=== PATIENT | male | born 1950 | race African-American/Black ===

== ENCOUNTER 2018-03-03 12:45 | Emergency (ER) | payer BC, MEDICARE ==
[~2018-03-03] VITALS: Ht 172.7 cm; Wt 99.8 kg
[2018-03-03] MEDS ORDERED: MECLIZINE HCL 12.5 MG TABLET. PO ONE (13:00)
[2018-03-03 13:19] VITALS: BP 164/82
[2018-03-03 13:19] LABS: BASO # 0.1 x10^3/uL (0.0-0.2); BASO % 1 % (0-3); EOS # 0.1 x10^3/uL (0.0-0.7); EOS % 2 % (0-3); HEMATOCRIT 40.3 % (39.0-53.0); HEMOGLOBIN 13.5 g/dL (13.0-17.5); LYMPH # 1.1 x10^3/uL (1.0-4.8); LYMPH % 13 % (24-48); MEAN CORPUSCULAR HEMOGLOBIN 28 pg (25-35); MEAN CORPUSCULAR HGB CONC 34 g/dL (31-37); MEAN CORPUSCULAR VOLUME 84 fL (79-100); MONO # 0.6 x10^3/uL (0.0-1.1); MONO % 7 % (0-9); NEUT # 6.4 x10^3uL (1.8-7.7); NEUT % 78 % (31-73); PLATELET COUNT 309 x10^3/uL (140-400); RED BLOOD COUNT 4.82 x10^6/uL (4.30-5.70); RED CELL DISTRIBUTION WIDTH 14.7 % (11.5-14.5); WHITE BLOOD COUNT 8.3 x10^3/uL (4.0-11.0)
--- NOTE | 2018-03-03 13:19 | RAD ---
EXAM: Chest, single view. HISTORY: Shortness of breath. Cough. COMPARISON: 05/15/2011. FINDINGS: A frontal view of the chest is obtained. There is no infiltrate, pleural effusion or pneumothorax. The heart is normal in size. There is stable widening of the right paratracheal stripe. IMPRESSION: No acute pulmonary finding. Electronically signed by: Dianelys Escamilla MD (03/03/2018 1:16 PM) [facility]
[2018-03-03 13:28] LABS: CALCIUM 8.7 mg/dL (8.5-10.1); CREATININE 2.4 mg/dL (0.7-1.3); GFR 32.6; POTASSIUM 3.2 mmol/L (3.5-5.1); PROTHROMBIN TIME PATIENT 12.5 SEC (11.7-14.0)
[2018-03-03 13:35] LABS: ALBUMIN 2.8 g/dL (3.4-5.0); ALBUMIN/GLOBULIN RATIO 0.6 (1.0-1.7); TOTAL BILIRUBIN 0.6 mg/dL (0.2-1.0); TOTAL PROTEIN 7.7 g/dL (6.4-8.2)
--- NOTE | 2018-03-03 13:43 | PHYS DOC ---
Past Medical History Past Medical History: Diabetes-Type II, High Cholesterol, Hypertension, Renal Disease Past Surgical History: No Surgical History Alcohol Use: None Drug Use: None Adult General Chief Complaint Chief Complaint: WEAKNESS/GENERALIZED HPI HPI Patient is a 67 year old male was brought in by ambulance with lightheadedness on and off for the last 2 weeks or so feels like he's going to pass out at times however he does not actually do so it is worse at night was lying in bed. 10 today he was going to yazdanism he felt like he was drunk he says the room is not spinning however. No double vision no chest pain or shortness of breath he just recently started a new diabetes medication triseba a copule weeks back. Review of Systems Review of Systems Constitutional: Denies fever or chills [] Eyes: Denies change in visual acuity, redness, or eye pain [] HENT: Denies nasal congestion or sore throat [] Respiratory: Denies cough or shortness of breath [] Cardiovascular: No additional information not addressed in HPI [] GI: Denies abdominal pain, nausea, vomiting, bloody stools or diarrhea [] Neurologic: Denies headache, focal weakness or sensory changes [] Endocrine: Denies polyuria or polydipsia [] All other systems were reviewed and found to be within normal limits, except as documented in this note. Current Medications Current Medications Current Medications Medications (Trade) Dose Ordered Sig/Wenceslao Start Time Stop Time Status Last Admin Dose Admin Meclizine HCl (Antivert) 25 mg 1X ONCE 03/03/18 13:00 03/03/18 13:01 DC 03/03/18 13:30 25 MG Sodium Chloride 1,000 ml @ 1,000 mls/hr 1X ONCE 03/03/18 13:45 03/03/18 14:44 DC 03/03/18 13:56 1,000 MLS/HR Allergies Allergies Allergies Coded Allergies Type Severity Reaction Last Updated Verified No Known Drug Allergies 07/18/13 No Physical Exam Physical Exam Constitutional: Well developed, well nourished, no acute distress, non-toxic appearance. [] HENT: Normocephalic, atraumatic, bilateral external ears normal, oropharynx moist, no oral exudates, nose normal. [] Eyes: PERRLA, EOMI, conjunctiva normal, no discharge. [] Neck: Normal range of motion, no tenderness, supple, no stridor. [] Cardiovascular:Heart rate regular rhythm, no murmur [] Lungs & Thorax: Bilateral breath sounds clear to auscultation [] Abdomen: Bowel sounds normal, soft, no tenderness, no masses, no pulsatile masses. [] Skin: Warm, dry, no erythema, no rash. [] Back: No tenderness, no CVA tenderness. [] Extremities: No tenderness, no cyanosis, no clubbing, ROM intact, no edema. [] Neurologic: Alert and oriented X 3, normal motor function, normal sensory function, no focal deficits noted. [] Psychologic: Affect normal, judgement normal, mood normal. [] Current Patient Data Vital Signs Vital Signs Date Time Temp Pulse Resp B/P (MAP) Pulse Ox O2 Delivery O2 Flow Rate FiO2 03/03/18 13:19 98.2 77 18 164/82 (109) 92 Room Air 98.2 Lab Values Laboratory Tests Test 03/03/18 13:00 03/03/18 13:10 White Blood Count 8.3 x10^3/uL (4.0-11.0) Red Blood Count 4.82 x10^6/uL (4.30-5.70) Hemoglobin 13.5 g/dL (13.0-17.5) Hematocrit 40.3 % (39.0-53.0) Mean Corpuscular Volume 84 fL (79-100) Mean Corpuscular Hemoglobin 28 pg (25-35) Mean Corpuscular Hemoglobin Concent 34 g/dL (31-37) Red Cell Distribution Width 14.7 % (11.5-14.5) H Platelet Count 309 x10^3/uL (140-400) Neutrophils (%) (Auto) 78 % (31-73) H Lymphocytes (%) (Auto) 13 % (24-48) L Monocytes (%) (Auto) 7 % (0-9) Eosinophils (%) (Auto) 2 % (0-3) Basophils (%) (Auto) 1 % (0-3) Neutrophils # (Auto) 6.4 x10^3uL (1.8-7.7) Lymphocytes # (Auto) 1.1 x10^3/uL (1.0-4.8) Monocytes # (Auto) 0.6 x10^3/uL (0.0-1.1) Eosinophils # (Auto) 0.1 x10^3/uL (0.0-0.7) Basophils # (Auto) 0.1 x10^3/uL (0.0-0.2) Prothrombin Time 12.5 SEC (11.7-14.0) Prothrombin Time INR 1.0 (0.8-1.1) Sodium Level 135 mmol/L (136-145) L Potassium Level 3.2 mmol/L (3.5-5.1) L Chloride Level 99 mmol/L (98-107) Carbon Dioxide Level 33 mmol/L (21-32) H Anion Gap 3 (6-14) L Blood Urea Nitrogen 16 mg/dL (8-26) Creatinine 2.4 mg/dL (0.7-1.3) H Estimated GFR (Cockcroft-Gault) 32.6 BUN/Creatinine Ratio 7 (6-20) Glucose Level 377 mg/dL (70-99) H Calcium Level 8.7 mg/dL (8.5-10.1) Total Bilirubin 0.6 mg/dL (0.2-1.0) Aspartate Amino Transferase (AST) 17 U/L (15-37) Alanine Aminotransferase (ALT) 21 U/L (16-63) Alkaline Phosphatase 86 U/L (46-116) Troponin I Quantitative < 0.017 ng/mL (0.000-0.055) Total Protein 7.7 g/dL (6.4-8.2) Albumin 2.8 g/dL (3.4-5.0) L Albumin/Globulin Ratio 0.6 (1.0-1.7) L Urine Collection Type Unknown Urine Color Yellow Urine Clarity Clear Urine pH 7.5 Urine Specific [place] 1.015 Urine Protein >=300 mg/dL (NEG-TRACE) Urine Glucose (UA) >=1000 mg/dL (NEG) Urine Ketones (Stick) Negative mg/dL (NEG) Urine Blood Negative (NEG) Urine Nitrite Negative (NEG) Urine Bilirubin Negative (NEG) Urine Urobilinogen Dipstick 0.2 mg/dL (0.2 mg/dL) Urine Leukocyte Esterase Negative (NEG) Urine RBC Occ /HPF (0-2) Urine WBC 0 /HPF (0-4) Urine Squamous Epithelial Cells Occ /LPF Urine Bacteria 0 /HPF (0-FEW) Urine Hyaline Casts Few /HPF Laboratory Tests 03/03/18 13:00 Laboratory Tests 03/03/18 13:00 EKG EKG [] Interpretation Time: EKG does show normal sinus rhythm with a rate of 78 there is poor R-wave progression anteriorly but there is no acute ST elevation WI noted interpreted by me the time of encounter Radiology/Procedures Radiology/Procedures [] Impressions: DINGS: A frontal view of the chest is obtained. There is no infiltrate, pleural effusion or pneumothorax. The heart is normal in size. There is stable widening of the right paratracheal stripe. IMPRESSION: No acute pulmonary finding. Electronically signed by: Dianelys Escamilla MD (03/03/2018 1:16 PM) [facility] DICTATED and SIGNED BY: DIANELYS ESCAMILLA MD DATE: 03/03/184 Course & Med Decision Making Course & Med Decision Making Pertinent Labs and Imaging studies reviewed. (See chart for details) 67-year-old male brought in by ambulance with lightheadedness. Overall is fairly nonspecific it does not clearly sound like cardiac in nature He is having elevated blood sugar also his creatinine is up to 2.4 from a baseline of 1.5. iv fluids were given. pt felt better after treatment. Meclizine also given. pt has f/u with nephrology this week. Dragon Disclaimer Dragon Disclaimer This electronic medical record was generated, in whole or in part, using a voice recognition dictation system. Departure Departure Impression: Primary Impression: Lightheadedness Disposition: 01 HOME, SELF-CARE Condition: STABLE Referrals: LACEY ENCARNACION MD (PCP) SONIDO TRAORE MD Mar 03, 2018 13:43
[2018-03-03] MEDS ORDERED: IV NORMAL SALINE 1000ML BAG 1,000 ML IV ONE (13:45)
[2018-03-03 15:31] LABS: BILIRUBIN,URINE NEGATIVE (NEG); CLARITY,URINE CLEAR; COLOR,URINE YELLOW; NITRITE,URINE NEGATIVE (NEG); PH,URINE 7.5; PROTEIN,URINE >=300 mg/dL (NEG-TRACE); UROBILINOGEN,URINE 0.2 mg/dL (0.2 mg/dL)
[2018-03-03 15:49] LABS: BACTERIA,URINE 0 /HPF (0-FEW); HYALINE CASTS, URINE FEW /HPF; RBC,URINE OCC /HPF (0-2); SQUAMOUS EPITHELIAL CELL,UR OCC /LPF; WBC,URINE 0 /HPF (0-4)
--- NOTE | 2018-03-03 18:50 | EKG ---
[facility] [address] [place] [address] Test Date: 2018-03-03 Test Time: 13:01:50 Pat Name: MAGALY OLIVA Department: Room: Gender: M Single Stroke Preformer: : 1950 Requested By: SONIDO TRAORE Order Number: [id number] Reading MD: Fuad Santiago MD Measurements Intervals Herrick Rate: 78 P: 23 OK: 174 QRS: 1 QRSD: 90 T: 26 QT: 406 QTc: 467 Interpretive Statements SINUS RHYTHM NON-SPECIFIC ST/T CHANGES Electronically Signed On 03-04-2018 10:50:15 CDT by Fuad Santiago MD
== END 2018-03-03 16:17 | disposition home or self-care (01) ==
LOC: ER 12:45
DX: R42 Dizziness and giddiness (principal); E11.9 Type 2 diabetes mellitus without complications; E78.00 Pure hypercholesterolemia, unspecified; I10 Essential (primary) hypertension
CPT/HCPCS: 36415; 71045; 80053; 81001; 84484; 85025; 85610; 93005; 96360; 96361; 99285; J7030; J8597

== ENCOUNTER → 2018-03-08 | Outpatient (CLI) | payer MEDICARE ==
[2018-03-03 13:19] VITALS: BP 164/82
--- NOTE | 2018-03-08 13:55 | RAD ---
MRI Brain without contrast History: Diplopia for 5 days, unsteady gait and dizziness for 2 weeks Technique: Multiplanar, multisequential noncontrast MR imaging was performed of the brain. Contrast: None Comparison: None Findings: There is a small about 0.9 cm focus of increased diffusion signal which is relatively isointense on ADC map of the right occipital lobe, also tiny focus of restricted diffusion right temporal cortical surface about 0.3 cm and about 3 tiny foci of diffusion signal abnormality of the right parietal lobe near the cortical surface with the largest about 0.4 cm which are more hypointense on ADC map. Foci are associated with mild increased T2 and STIR signal. There is no intra-axial mass effect, midline shift, or extra-axial fluid collection. Ventricular size is within normal limits. There is multifocal moderate T2 and FLAIR hyperintense abnormality of the supratentorial white matter bilaterally, also some foci of the bilateral basal ganglia greater on the left and minimally of the amy. Focus of signal change of the posterior left basal ganglia is probably due to old lacunar infarct. There is preservation of the major arterial intracranial flow voids at the skull base other than probably hypoplastic right vertebral artery flow-void. There is a tiny old lacunar infarct of the left cerebellum. There is likely cyst of the right nasal cavity about 1.1 cm, negligible patchy ethmoid air cell mucosal thickening. There are small mucous retention cysts of the inferior maxillary sinuses bilaterally. Cerebellar tonsils are normal in location. There is preserved marrow signal of the clivus. Pituitary gland is small. Impression: 1. There are a few small foci of recent, likely subacute infarcts of the right occipital, temporal, parietal lobes. 2. Other multifocal T2 and FLAIR hyperintense signal abnormality of the supratentorial white matter and to lesser degree of the amy is probably due to to chronic microvascular ischemic disease. FOR INTERNAL CODING PURPOSES Critical result: Findings discussed with nurse Pichardo in the office of Yina Abel at 03/08/2018 1:52 PM, to inform doctor of findings. RESULT CODE: (C) Electronically signed by: Bonilla Montano MD (03/08/2018 1:52 PM) [facility] [place]
== END | disposition home or self-care (01) ==
LOC: MRI 12:54
PROVIDERS: ATTEND Nurse Practitioner Gerontology
DX: J34.1 Cyst and mucocele of nose and nasal sinus (principal); I10 Essential (primary) hypertension; E11.9 Type 2 diabetes mellitus without complications; E78.00 Pure hypercholesterolemia, unspecified; R90.82 White matter disease, unspecified; Z87.891 Personal history of nicotine dependence
CPT/HCPCS: 70551

== ENCOUNTER → 2018-03-13 | Outpatient (CLI) | payer MEDICARE ==
[2018-03-03 13:19] VITALS: BP 164/82
--- NOTE | 2018-03-13 17:08 | RAD ---
Carotid ultrasound, 03/13/2018: HISTORY: Dizziness Duplex evaluation of the carotid arteries and neck was performed including grayscale, color-flow and spectral Doppler analysis. There is moderate atherosclerotic plaquing in the common carotid arteries and at both carotid bifurcations. These plaques are partially calcified. At the right carotid bulb there appears to be approximately 50 percent diameter narrowing with a peak systolic velocity of 193 cm/s and an end-diastolic velocity of 33 cm/s. The peak systolic velocity in the right internal carotid artery is 133 cm/s with an end-diastolic velocity of 25 cm/s and an internal carotid to common carotid artery ratio 1.2. These Doppler findings suggest narrowing in the 0-50 percent diameter range. There is a moderate velocity acceleration in the proximal right external carotid artery up to 285 cm/s. On the left, the proximal internal carotid artery is quite tortuous. The peak systolic velocity in the internal carotid artery is 135 cm/s with an end-diastolic velocity of 19 cm/s and an internal carotid to common carotid artery ratio 1.1. These Doppler findings suggest narrowing in the 0-50 percent diameter range. There is a mild velocity acceleration in the proximal left external carotid artery up to 202 cm/s. Antegrade flow is present in both vertebral arteries in the neck. IMPRESSION: 1. Moderate atherosclerotic plaquing at both carotid bifurcations with narrowing of the carotid bulbs and the proximal internal carotid arteries in the 0-50 percent diameter range bilaterally. 2. Mild to moderate stenosis of the proximal right external carotid artery. Note: Stenosis calculations for CT, MRA and conventional angiography are based upon determination of the distal ICA diameter in accordance with the NASCET methodology. Stenosis calculations for Doppler studies are derived from validated velocity criteria which are known to correlate with NASCET methodology of determining stenosis. Electronically signed by: Benjamin Moscoso MD (03/13/2018 5:05 PM) [facility]
== END | disposition home or self-care (01) ==
LOC: US 15:01
PROVIDERS: ATTEND Nurse Practitioner Gerontology
DX: I65.23 Occlusion and stenosis of bilateral carotid arteries (principal); I10 Essential (primary) hypertension; E11.9 Type 2 diabetes mellitus without complications; E78.00 Pure hypercholesterolemia, unspecified; Z87.891 Personal history of nicotine dependence
CPT/HCPCS: 93880

== ENCOUNTER → 2018-06-07 | Outpatient (CLI) | payer MEDICARE ==
[2018-06-07 13:21] LABS: BASO # 0.1 x10^3/uL (0.0-0.2); BASO % 1 % (0-3); EOS # 0.3 x10^3/uL (0.0-0.7); EOS % 5 % (0-3); HEMATOCRIT 37.2 % (39.0-53.0); HEMOGLOBIN 12.3 g/dL (13.0-17.5); LYMPH % 29 % (24-48); MEAN CORPUSCULAR HEMOGLOBIN 28 pg (25-35); MEAN CORPUSCULAR HGB CONC 33 g/dL (31-37); MEAN CORPUSCULAR VOLUME 83 fL (79-100); MONO # 0.7 x10^3/uL (0.0-1.1); MONO % 10 % (0-9); NEUT # 3.8 x10^3uL (1.8-7.7); NEUT % 55 % (31-73); PLATELET COUNT 307 x10^3/uL (140-400); RED BLOOD COUNT 4.47 x10^6/uL (4.30-5.70); RED CELL DISTRIBUTION WIDTH 15.7 % (11.5-14.5); WHITE BLOOD COUNT 6.8 x10^3/uL (4.0-11.0)
[2018-06-07 13:37] LABS: ALBUMIN 2.5 g/dL (3.4-5.0); ALBUMIN/GLOBULIN RATIO 0.6 (1.0-1.7); CALCIUM 8.7 mg/dL (8.5-10.1); CREATININE 2.6 mg/dL (0.7-1.3); GFR 29.7; POTASSIUM 3.7 mmol/L (3.5-5.1); TOTAL BILIRUBIN 0.5 mg/dL (0.2-1.0)
== END | disposition home or self-care (01) ==
LOC: LAB 12:55
PROVIDERS: ATTEND Psychiatry & Neurology Neurology
DX: E11.40 Type 2 diabetes mellitus with diabetic neuropathy, unspecified (principal)
CPT/HCPCS: 36415; 80053; 82607; 84443; 85025

== ENCOUNTER → 2018-06-19 | Outpatient (CLI) | payer MEDICARE ==
--- NOTE | 2018-06-19 16:12 | CARD ---
MR#: [id number] Date of Study: 06/19/2018 Ordering Physician: ALEC GARCIA, Referring Physician: ALEC GARCIA, Tech: Sissy Christopher RDCS APPROVED REPORT EXAM: Two-dimensional and M-mode echocardiogram with Doppler and color Doppler. Other Information Quality : Good INDICATION CVA/TIA Echo Enhancing Agent Agent/Amount Used: Agitated Saline 16mL 2D DIMENSIONS RVDd2.6 (2.9-3.5cm)Left Atrium(2D)4.4 (1.6-4.0cm) IVSd1.6 (0.7-1.1cm)Aortic Root(2D)2.8 (2.0-3.7cm) LVDd4.7 (3.9-5.9cm)LVOT Diameter2.0 (1.8-2.4cm) PWd1.6 (0.7-1.1cm)LVDs3.5 (2.5-4.0cm) FS (%) 27.0 %SV51.0 ml LVEF(%)55.0 (>50%) Aortic Valve AoV Peak Bjorn.146.9cm/sAoV VTI28.1cm AO Peak GR.8.6mmHgLVOT Peak Bjorn.75.5cm/s AO Mean GR.5mmHgAVA (VMAX)1.57cm2 Mitral Valve MV E Gptczqrk49.9cm/sMV DECEL LIJY542ts MV A [place]694.4cm/sE/A Ratio0.8 Pulmonary Vein S1 Wluecvty77.2cm/sD2 Nvrmqpxv88.2cm/s LEFT VENTRICLE The left ventricle is normal size. There is mild concentric left ventricular hypertrophy. The left ve ntricular systolic function is normal and the ejection fraction is within normal range. The Ejection Fraction is 55-60%. There is normal LV segmental wall motion. Transmitral Doppler flow pattern is Gra de I-abnormal relaxation pattern. RIGHT VENTRICLE The right ventricle is normal size. The right ventricular systolic function is normal. ATRIA The left atrium is mildly dilated. The right atrium size is normal. Mildly positive bubbke study. Inj ection of bubbles documented a mild interatrial shunt. The interatrial shunt is also visualized by co ralf Doppler in the subcostal view. AORTIC VALVE The aortic valve is calcified but opens well. Doppler and Color Flow revealed no significant aortic r egurgitation. There is no significant aortic valvular stenosis. MITRAL VALVE The mitral valve is calcified but opens well. There is no evidence of mitral valve prolapse. There is no mitral valve stenosis. Doppler and Color-flow revealed trace to mild mitral regurgitation. TRICUSPID VALVE The tricuspid valve is normal in structure and function. Doppler and Color Flow revealed trace tricus pid valve regurgitation. There is no tricuspid valve stenosis. PULMONIC VALVE The pulmonic valve is not well visualized. Doppler and Color Flow revealed trace to mild pulmonic irma vular regurgitation. There is no pulmonic valvular stenosis. GREAT VESSELS The aortic root is normal in size. The ascending aorta is mildly dilated at 4.0 cm. The IVC is normal in size and collapses >50% with inspiration. PERICARDIAL EFFUSION There is no evidence of significant pericardial effusion. Critical Notification Critical Value: No <Conclusion> The left ventricle is normal size. The left ventricular systolic function is normal and the ejection fraction is within normal range. The Ejection Fraction is 55-60%. There is mild concentric left ventricular hypertrophy. Mildly positive bubbke study. Injection of bubbles documented a mild interatrial shunt. The interatrial shunt is also visualized by color Doppler in the subcostal view. There is no significant aortic valvular stenosis. Doppler and Color Flow revealed no significant aortic regurgitation. Doppler and Color-flow revealed trace to mild mitral regurgitation. Doppler and Color Flow revealed trace tricuspid valve regurgitation. Signed by : Ld Salmon MD Electronically Approved : 06/19/2018 16:10:25
--- NOTE | 2018-06-19 16:34 | RAD ---
Ultrasound venous Doppler INDICATION:B/L LEG EDEMA TECHNIQUE: Grayscale, color Doppler and spectral waveform ultrasound images of the bilateral lower extremities deep veins obtained. COMPARISON: None FINDINGS: The interrogated deep veins are compressible and demonstrate evidence of blood flow with normal respiratory variation and response to augmentation. IMPRESSION: No sonographic evidence of acute DVT of the bilateral lower extremity deep veins. Electronically signed by: Esteban Linton DO (06/19/2018 4:31 PM) [facility]
== END | disposition home or self-care (01) ==
LOC: CARD 14:12
PROVIDERS: ATTEND Psychiatry & Neurology Neurology
DX: I34.0 Nonrheumatic mitral (valve) insufficiency (principal); I51.7 Cardiomegaly; R60.0 Localized edema
CPT/HCPCS: 93306; 93970